=== PATIENT | female | born 1965 | race Caucasian/White ===

== ENCOUNTER → 2018-11-17 | Outpatient (REF) | payer OTHER ==
[2018-11-17 18:27] LABS: APPEARANCE, URINE CLEAR (CLEAR); BACTERIA, URINE AUTO 2+ (NEGATIVE); BILIRUBIN, URINE AUTO NEGATIVE (NEGATIVE); BLOOD, URINE BLOOD 3+ (NEGATIVE); COLOR, URINE YELLOW (YELLOW); GLUCOSE, URINE (UA) AUTO NEGATIVE (NEGATIVE); KETONE, URINE AUTO NEGATIVE (NEGATIVE); LEUKOCYTE ESTERASE, URINE AUTO 2+ (NEGATIVE); NITRITE, URINE AUTO NEGATIVE (NEGATIVE); PROTEIN, URINE AUTO NEGATIVE (NEGATIVE); RBC, URINE AUTO 22 /HPF (0-3); SPECIFIC GRAVITY URINE AUTO 1.004 (1.002-1.035); SQUAMOUS EPITHELIAL CELL UR AU 1 /HPF (0-6); UROBILINOGEN, URINE AUTO 0.2 mg/dL (0.0-2.0); WBC, URINE AUTO 62 /HPF (0-3)
== END ==
LOC: M LAB REF 15:50
PROVIDERS: ATTEND Physician Assistant Medical
DX: R30.0 Dysuria (principal)

== ENCOUNTER → 2019-04-14 | Outpatient (REF) | payer OTHER ==
[~2019-04-14] MED LIST: ACET-908 PO; IBUP40TA PO; OXYC1TAB23 PO
== END ==
LOC: M LAB LCGH 11:52
PROVIDERS: ATTEND Family Medicine
DX: Z00.01 Encounter for general adult medical examination with abnormal findings (principal)

== ENCOUNTER → 2019-05-14 | Outpatient (CLI) | payer OTHER ==
[~2019-05-14] MED LIST changes: -OXYC1TAB23 PO
--- NOTE | 2019-05-14 08:25 | REP ---
Lower Extremity Venous Reflux: Positive reflux is greater than 0.5 seconds. Right Reflux Left Reflux CFV Reflux yes no Ant. Acc. GSV Present no no Reflux no no Greater saph/fem junction 9.1 mm yes -- mm no Greater saph vein mid thigh 6.0 mm yes --mm no Greater saph vein at knee 7.3 mm yes -- mm no SFV PROX no no SFV MID no no SFV DISTAL no no POPLITEAL VEIN no no LSV -- mm no -- mm no In the right lower extremity, the greater saphenous vein is large and demonstrates significant reflux to below the knee. There are large greater saphenous vein collaterals in the posterior medial calf. There is a large superficial saphenous vein that demonstrates antegrade flow that increases with Valsalva. There is no deep system reflux. In the left lower extremity, there is no reflux in the superficial or deep venous systems. Electronically Signed by Kelvin Singer MD 05/14/2019 08:17 A
== END ==
LOC: M RAD 06:47
PROVIDERS: ATTEND Surgery Vascular Surgery
DX: I83.893 Varicose veins of bilateral lower extremities with other complications (principal)

== ENCOUNTER 2019-07-11 05:57 | Day surgery (SDC) | payer OTHER ==
[~2019-07-11] VITALS: Ht 154.9 cm; Wt 55.3 kg
[2019-07-11] MEDS ORDERED: LR 1,000 ML IV ONE (06:00)
[2019-07-11] MEDS ORDERED: LIDOCAINE 1% MDV 20ML VIAL SQ PRN (06:00)
[2019-07-11] MEDS ORDERED: MIDAZOLAM INJ 2 MG/2 ML VIAL (J2250) As Ordered ONE (07:10)
[2019-07-11] MEDS ORDERED: fentaNYL 100 MCG/2 ML INJECTION (J3010) As Ordered ONE (07:10)
[2019-07-11] MEDS ORDERED: ONDANSETRON 4MG/2ML VIAL (J2405) As Ordered ONE (07:11)
[2019-07-11] MEDS ORDERED: PROPOFOL 200 MG/20 ML VIAL As Ordered ONE ×2 (07:11→08:11)
[2019-07-11] MEDS ORDERED: LIDOCAINE 2% INJ 100 MG/5 ML SDV (FOR ANES.) As Ordered ONE (07:11)
[2019-07-11] MEDS ORDERED: dexameTHASONE 4 MG/ML 1ML VIAL (J1100) As Ordered ONE (07:14)
[2019-07-11] MEDS: LIDOCAINE W/EPINEPHRINE 1% 20ML VIAL As Ordered ONE ×3 (07:16→08:08)
[2019-07-11] MEDS: ceFAZolin SOD 1 GM in D5W MINI-BAG PLUS 50 ML IV ONE (07:33)
[2019-07-11] MEDS ORDERED: ACETAMINOPHEN 1000MG 100ML IV BTL (OFIRMEV) (J0131 PER 10MG) As Ordered ONE (07:39)
[2019-07-11] MEDS ORDERED: KETAMINE HCL 200 MG/20 ML VIAL As Ordered ONE (07:43)
[2019-07-11] MEDS: HEPARIN SOD (PORCINE) 5000 UNITS/ML VIAL As Ordered ONE (08:08)
[2019-07-11] MEDS: LIDOCAINE 1% SDV INJ 30 ML VIAL As Ordered ONE (09:00)
[2019-07-11] MEDS ORDERED: OXYC1TAB23 PO (09:08)
--- NOTE | 2019-07-11 09:16 | ROOPDOC ---
[facility] Report Of Operation Report of Operation DATE OF PROCEDURE: 07/11/19 PREPROCEDURE DIAGNOSES: Right lower extremity severe venous insufficiency greater saphenous vein was symptomatic varicosities. POSTPROCEDURE DIAGNOSES: Same. PROCEDURE: Right lower extremity greater saphenous vein radiofrequency ablation. SURGEON: Osiel Mendoza MD ANESTHESIA: Local anesthesia 4cc lidocaine. Monitored anesthesia care. INDICATION FOR PROCEDURE: This is a very pleasant 53-year-old patient with severe right greater saphenous vein reflux and chronic venous insufficiency with symptomatic right medial knee varicosities. Risk benefits alternatives to radiofrequency ablation were explained to the patient she is agreeable to proceed. Informed consent was obtained. REPORT OF OPERATION: The patient was brought to the OR in stable condition. She was placed supine on your table. Monitored anesthesia care and antibiotics were administered without compensation her right lower extremity was prepped and draped from the foot to groin in a sterile fashion. A timeout was performed. Local anesthesia was a commercial real estate broker to skin and subcutaneous tissue over the greater saphenous vein below the knee. A microneedle was used to access the saphenous vein at the knee under ultrasound guidance. A wire was passed through this access and confirmed to be in the greater saphenous vein with ultrasound. The sheath was placed and flushed with saline. Ultrasound was used to identify the saphenofemoral junction and an ablation catheter was passed from the sheath through the greater saphenous vein to the saphenofemoral junction. Care was taken to confirm the tip of the catheter was 2 cm from the junction. This was done under ultrasound. Tumescence was then injected around the greater saphenous vein from the sheath to the saphenofemoral junction. Insufficient tumescence was injected, ablation of the greater saphenous vein was performed. A total of 7 cycles were used. I examined the vein with ultrasound it appeared to be closed and there was no extension of thrombus into the saphenofemoral junction or common femoral vein thus far. The sheath and catheter were then removed and pressure was held at the access site for 2 minutes for good hemostasis. Steri- Strips were placed at the access site. 4 x 4's and Kerlix were used to rewrapped the thigh to absorb any leakage of tumescence from the needle access sites over the next day or 2. Michael wraps were wrapped from the foot to the groin. The patient was allowed to awaken from her anesthesia was taken to recovery in stable condition. ESTIMATED BLOOD LOSS: Approximately 1 mL. COMPLICATIONS: None. PLAN: Patient will be discharged home today with instructions to ambulate as tolerated, short distances, and keep leg elevated above the level of the heart as much as possible over the weekend. It is okay to remove the Michael wraps and gauze and shower tomorrow, then rewrapped the Michael wraps but okay to leave the gauze off. Steri-Strips will follow off on their own. Next week, she will have an ultrasound of the right lower extremity to ensure that the saphenous ablation was successful and that there is no propagation of thrombus into the saphenofemoral junction or common femoral vein on the right. Prescription for Percocet called in to kidney and cartridge, no refills. OSIEL MENDOZA MD Jul 11, 2019 09:16
[2019-07-11] MEDS ORDERED: LR 1,000 ML IV SCH (09:30)
[2019-07-11] MEDS ORDERED: NORCO, ANEXSIA 5/325MG TABLET (HYDROcodone/ACETAMINOPHEN) PO PRN (09:30)
[2019-07-11] MEDS: ONDANSETRON 4MG/2ML VIAL (J2405) IV PRN (10:25)
[2019-07-11 10:55] VITALS: BP 130/61
--- NOTE | 2019-07-11 23:58 | ECGEPIP ---
[facility] Test Date: 2019-07-11 Pat Name: ODESSA ALMANZA Department: Room: - Gender: Female Tool And [employer] Manager: ERNIE : 1965 Requested By: ZACHARIAH Amado Order Number: [id number] Reading MD: Tee Parks Measurements Intervals Winn Rate: 66 P: 64 MI: 127 QRS: 43 QRSD: 88 T: 54 QT: 430 QTc: 451 Interpretive Statements SINUS RHYTHM NO PRIOR TRACING IN THE SYSTEM Electronically Signed on 07-11-2019 23:58:07 EST by Tee Parks
== END 2019-07-11 10:56 | disposition home or self-care (01) ==
LOC: M SDC 05:57
PROVIDERS: ATTEND Surgery Vascular Surgery
DX: I87.2 Venous insufficiency (chronic) (peripheral) (principal); I83.811 Varicose veins of right lower extremity with pain; R51 Headache

== ENCOUNTER → 2019-07-14 | Outpatient (CLI) | payer OTHER ==
[~2019-07-14] MED LIST changes: +OXYC1TAB23 PO
--- NOTE | 2019-07-14 11:31 | REP ---
Clinical: Status post ablation therapy with pain. Technique: Real time connor scale and color Doppler evaluation using linear high frequency transducer. Findings: The greater saphenous vein is occluded beginning approximately 1.8 cm from its origin. 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 There is no evidence for deep venous thrombosis. Impression: No evidence for deep venous thrombosis. Electronically Signed by Mohan Rajput MD 07/14/2019 11:23 A
== END ==
LOC: M RAD 10:48
PROVIDERS: ATTEND Surgery Vascular Surgery
DX: Z48.89 Encounter for other specified surgical aftercare (principal); I82.811 Embolism and thrombosis of superficial veins of right lower extremity